=== PATIENT | female | born 1970 | race Hispanic/Latino ===

== ENCOUNTER 2017-01-16 05:49 | Emergency (ER) | payer OTHER ==
--- NOTE | 2017-01-16 06:00 | ED PDOC ---
Arrival/HPI - General Chief Complaint: Lower Extremity Problem/Injury Time Seen by Provider: 01/16/17 05:52 Historian: Patient - History of Present Illness Narrative History of Present Illness (Text): 01/16/17 05:56 Tia Lopez is a 46 year old female who presents to the Emergency department brought in by EMS complaining of right ankle status post injury at home. Patient states she was walking at home in the dark when she tripped down a few stair at home, injuring her right ankle. Patient now complaining of pain to the right ankle pain and foot. Patient denies any weakness/numbness/tingling in the extremity, other trauma/injury, or any other complaints. Time/Duration: Prior to Arrival Symptom Onset: Sudden Symptom Course: Unchanged Activities at Onset: Light Context: Walking, Home Past Medical History - Provider Review Nursing Documentation Reviewed: Yes Family/Social History - Physician Review Nursing Documentation Reviewed: Yes Family/Social History: Unknown Family HX Allergies/Home Meds Allergies/Adverse Reactions: Allergies ciprofloxacin [From Cipro] Allergy (Verified 01/16/17 05:57) RASH doxycycline [From Vibramycin] Allergy (Verified 01/16/17 05:57) RASH erythromycin base [From Erythrocin] Allergy (Verified 01/16/17 05:57) RASH Penicillins Allergy (Verified 01/16/17 05:57) RASH Sulfa (Sulfonamide Antibiotics) Allergy (Verified 01/16/17 05:57) RASH Home Medications: Home Meds Medication Instructions Recorded Confirmed No Known Home Med 01/16/17 01/16/17 Review of Systems - Physician Review All systems were reviewed & negative as marked: Yes - Review of Systems Constitutional: Normal. absent: Fevers Eyes: Normal ENT: Normal Respiratory: Normal Cardiovascular: Normal Gastrointestinal: Normal. absent: Nausea, Vomiting Genitourinary Female: Normal Musculoskeletal: Arthralgias (+right ankle/foot pain). absent: Back Pain, Neck Pain Skin: Normal Neurological: Normal. absent: Headache, Dizziness Endocrine: Normal Hemo/Lymphatic: Normal Psychiatric: Normal Physical Exam Vital Signs Reviewed: Yes Vital Signs Temp Pulse Resp BP Pulse Ox 01/16/17 08:08 76 16 130/71 100 01/16/17 05:50 97.8 F 89 16 135/77 100 Temperature: Afebrile Blood Pressure: Normal Pulse: Regular Respiratory Rate: Normal Appearance: Positive for: Well-Appearing, Non-Toxic, Comfortable Pain Distress: None Mental Status: Positive for: Alert and Oriented X 3 - Systems Exam Head: Present: Atraumatic Pupils: Present: PERRL Extroacular Muscles: Present: EOMI Conjunctiva: Present: Normal Mouth: Present: Moist Mucous Membranes Upper Extremity: Present: Normal Inspection. No: Cyanosis, Edema Lower Extremity: Present: NORMAL PULSES, Normal ROM, Tenderness (Tenderness to right lateral malleolus), Swelling (Swelling to right lateral malleolus), Neurovascularly Intact, Capillary Refill < 2 s. No: Edema, Cyanosis, Erythema, Deformity, Temperature Abnormalties Neurological: Present: GCS=15, CN II-XII Intact, Speech Normal Skin: Present: Warm, Dry, Normal Color. No: Rashes Psychiatric: Present: Alert, Oriented x 3, Normal Insight, Normal Concentration Medical Decision Making ED Course and Treatment: 01/16/17 05:56 Impression: 46 year old female presents s/p fall with right ankle/foot pain today. Differential Diagnosis included but are not limited to: fracture vs. sprain vs. contusion Plan: -- XR Right Ankle -- XR Right Foot -- Motrin -- Reassess and disposition Progress Notes: 01/16/17 06:40 Reviewed radiology, XR Right Ankle shows no acute fracture/processes. XR Right Foot shows ?avulsion fracture of the right calcaneus. 01/16/17 07:25 Xray -right Tibia/fibula shows oblique fracture proximal fibula 01/16/17 07:45 Pt. was seen and evaluated by in the ED.Splint placed.Pt. to follow up outpatient in his office as per . - RAD Interpretation Radiology Orders: 01/16/17 06:01 ANKLE RIGHT 3 VIEWS ROUTINE [RAD] Stat FOOT RIGHT 3 VIEWS ROUTINE [RAD] Stat 01/16/17 07:04 TIBIA FIBULA RT FALL PROTOCOL [RAD] Stat Advertising Photographer: ED Physician - Medication Orders Current Medication Orders: Discontinued Medications Ibuprofen (Motrin Tab) 800 mg PO STAT STA Stop: 01/16/17 06:08 Last Admin: 01/16/17 06:23 Dose: 800 mg - Scribe Statement The provider has reviewed the documentation as recorded by the Freddy Maynard Provider Scribe Attestation: All medical record entries made by the Scribe were at my direction and personally dictated by me. I have reviewed the chart and agree that the record accurately reflects my personal performance of the history, physical exam, medical decision making, and the department course for this patient. I have also personally directed, reviewed, and agree with the discharge instructions and disposition. Disposition/Present on Arrival - Present on Arrival Any Indicators Present on Arrival: No - Disposition Have Diagnosis and Disposition been Completed?: Yes Diagnosis: Ankle sprain, Ankle fracture, Fibula fracture Disposition: HOME/ ROUTINE Disposition Time: 07:49 Patient Plan: Discharge Condition: STABLE Discharge Instructions (ExitCare): Ankle Fracture (ED), Ankle Sprain (ED), Leg Fracture (ED) Additional Instructions: Maintain splint/use crutches/follow up with on Wednesday as per his instructions Referrals: Jose EGAN,Tanmay Garcia MD [Primary Care Provider] - Follow up with primary Blue Waller DO [Staff Provider] - Follow up with primary Forms: [facility] (Polish)
[2017-01-16 07:05] VITALS: RESP 16; TEMP 97.8; O2SAT 100
[2017-01-16 08:15] VITALS: BP 130/71; PULSE 76
--- NOTE | 2017-01-16 08:49 | RAD ---
PROCEDURE: Right Ankle Radiographs. HISTORY: injury COMPARISON: None FINDINGS: BONES: Normal. No fracture. JOINTS: Normal. No osteoarthritis. Ankle mortise maintained. Talar dome intact SOFT TISSUES: Normal. OTHER FINDINGS: None. IMPRESSION: Normal right ankle radiographs.
--- NOTE | 2017-01-16 08:50 | RAD ---
PROCEDURE: Right Foot Radiographs. HISTORY: injury COMPARISON: None. FINDINGS: BONES: Normal. No fracture. JOINTS: Normal. SOFT TISSUES: Normal. OTHER FINDINGS: None. IMPRESSION: Normal right foot radiographs.
--- NOTE | 2017-01-16 08:51 | RAD ---
PROCEDURE: Radiographs of the right tibia and fibula. HISTORY: injury COMPARISON: None available. TECHNIQUE: Frontal and lateral views obtained. FINDINGS: BONES: There is an oblique minimally displaced fracture of the proximal fibula. JOINT SPACES: Unremarkable. OTHER FINDINGS: None. IMPRESSION: There is an oblique minimally displaced fracture of the proximal fibula.
--- NOTE | 2017-01-18 08:55 | CON ---
DATE: 01/16/2017 HISTORY OF PRESENT ILLNESS: The patient is a 46-year-old female, who came to the emergency room at 5:49 a.m. today for an injury that she sustained to the right ankle while walking her dog early this morning. She came in with a tender medial side of the right ankle and proximal leg in the area of the fibula. X-rays of the leg showed a minimally displaced fracture at proximal fibula, spiral kind, just below the fibular head, and she is very tender to medial malleolus with avulsion fracture of the lateral part of the talus distally near the talocalcaneal joint, and this tenderness of the medial side of the ankle is signifying a slight partial tear of the deltoid ligament. We consider this a Maisonneuve new fracture and dislocation with unstable ankle mortise where she is tender to palpation and increased motion with plantar flexion of the ankle and feels better with dorsiflexion of the right ankle, so I told her, we will give her an Aircast today, let the swelling go down medially at the raptured deltoid ligament and put on a walking boot when I see her in the office. FINAL DIAGNOSES: Fractured proximal fibula; torn deltoid ligament, right ankle, consistent with Maisonneuve fracture and dislocation of the right ankle. Blue Waller DO
== END 2017-01-16 08:15 | disposition home or self-care (01) ==
LOC: ED 05:49
DX: S82.861A Displaced Maisonneuve's fracture of right leg, initial encounter for closed fracture (principal); S82.401A Unspecified fracture of shaft of right fibula, initial encounter for closed fracture; W10.9XXA Fall (on) (from) unspecified stairs and steps, initial encounter; Y93.K1 Activity, walking an animal; Y92.009 Unspecified place in unspecified non-institutional (private) residence as the place of occurrence of the external cause; Z88.0 Allergy status to penicillin; Z88.2 Allergy status to sulfonamides; Z88.1 Allergy status to other antibiotic agents